=== PATIENT | male | born 1975 | race Caucasian/White ===

== ENCOUNTER 2017-06-12 21:49 | Emergency (ER) | payer OTHER ==
[~2017-06-12] VITALS: Ht 165.1 cm; Wt 72.1 kg
[~2017-06-12 21:49] MED LIST: DICLOFENAC SODI50 MG PO; KETO10TA2 PO
== END 2017-06-13 00:33 | disposition home or self-care (01) ==
LOC: ER 21:49
DX: M79.622 Pain in left upper arm (principal)

== ENCOUNTER 2020-12-14 21:28 | Emergency (ER) | payer OTHER ==
[~2020-12-14] VITALS: Ht 165.1 cm; Wt 82.6 kg
[2020-12-15] MEDS ORDERED: PROTONIX20 MG PO (00:54)
[2020-12-15] MEDS ORDERED: CARAFATE1 GM PO (00:54)
[2020-12-15] MEDS ORDERED: PEPCID AC20 MG PO (00:54)
== END 2020-12-15 01:27 | disposition home or self-care (01) ==
LOC: ER 21:28
DX: K29.70 Gastritis, unspecified, without bleeding (principal)